=== PATIENT | female | born 1980 | race Caucasian/White ===

== ENCOUNTER 2020-09-15 06:54 | Inpatient (IN) ==
--- NOTE | 2020-09-11 11:04 | PAT Medication Instructions ---
Medication Instructions Date of Service September 11, 2020 Home Medications [Glucosamine Chondroitin] 1 cap PO PM multivitamin 1 tab PO PM STOP taking 2 weeks before surgery If surgery is within 2 weeks, stop taking as soon as possible. [Glucosamine Chondroitin] 1 cap PO PM Take evening before surgery multivitamin 1 tab PO PM NOTHING TO EAT OR DRINK AFTER MIDNIGHT. Other Notes If you have any questions please call us at [phone] or [phone] or [phone] or [phone]
--- NOTE | 2020-09-12 11:56 | Anesthesiology Consultation ---
Date of Service September 12, 2020 Assessment & Plan (1) Encounter for pre-operative examination: Chart Review Chart Review: Acceptable Risk for Surgery (pending preop Covid testing ) and Patient seen in Pre Admission Testing - Check test AM DOS Per [facility] appt on 09/12/20, patient denies any recent travel or large group activities. No known Covid positive contacts or Covid related symptoms. Pt denies any known Covid infection in the past 90 days. Preop Covid test done at [facility] appt on 09/12/20= results pending Teaching & Discussion Pre-Anesthesia Teaching/Discussion Notes: Instructed NPO after midnight before surgery,except medications with 15 cc of water. Medication instructions provided according to the [facility] guidelines. History Surgery Operation Date: 09/15/20 11:20 Proposed Procedures p Total Abdominal Hysterectomy - Zack Salcido MD Height/Weight Height: 5 ft 10 in Weight: 103.1 kg Allergies Allergy/AdvReac Type Severity Reaction Status Date / Time No Known Allergies Allergy Verified 09/11/20 09:05 Medications Home Medications Medication Instructions Recorded Confirmed Last Taken glucos sul [id number] 1 cap PO PM 09/11/20 09/11/20 Unknown [Glucosamine Chondroitin] multivitamin 1 tab PO PM 09/11/20 09/11/20 Unknown Past Medical History Medical History (Updated 09/12/20 @ 14:40 by Leidy Moreland PA-C) Anxiety mild > no meds - stable Cardiac murmur Echo 2019 showed trace to mild TR. No significant murmur noted at 09/12/20 [facility] appt Degenerative disc disease lumbar Hypertension not chronic just when nervous Mini stroke 4 yrs ago > no residual effects > caused by stress overload > doesn't follow neuro Palpitations 11/2018 came to OR ED, no further issue, felt was stress/anxiety related. Echo WNL. Exercise / Class Metabolic Activity II 4-5 Yardwork/Stairs/Walk up hill (one flight of stairs- no chest pain or SOB ) Past Family History Family History Aunt Cerebral aneurysm Past Surgical History Surgical History [place] teeth extracted Past Anesthesia History No Hx of Anesthesia Complications (had minimal sedation with wisdom teeth ) and No Family Hx of Anesthesia Complications History of PONV No Hx of PONV and No Hx of Motion Sickness Social History Smoking Status: Former smoker Do You Dip or Chew Tobacco: No Smoking End Date: 2 yrs ago Hx Alcohol Use: No Alcohol Intake Frequency Comment: sober for 5.5 yrs Hx Substance Use: No substance use type: does not use Review of Systems Occ reflux- diet dependent- relieved by Tums Patient denies chest pain, shortness of breath, dyspnea on exertion, cough, wheezing, palpitations. No hx of seizures, NE, apnea/snoring. No hx of blood clots or blood transfusions Physical Exam Vital Signs VITALS BP 149/96 P 70 TEMP 98.4 SP02 99% RESP 16 Constitutional no acute distress ENMT Mouth: no TMJ clicking Thyromental Distance: > or= 3.5 Finger Breadths (3.5) Mallampati Class: II Denies loose or missing teeth Neck neck extension not limited Respiratory normal respiratory effort; no respiratory distress Auscultation: lungs clear to auscultation bilaterally; no wheezes Cardiovascular Rate/Rhythm: regular rate and regular rhythm Heart Sounds: no murmur Vessels: no carotid bruit Musculoskeletal Spine: no pain with cervical ROM Extremities: extremities normal to inspection Psychiatric Orientation: alert Testing Laboratory Results 09/12/20 11:41 09/12/20 11:41 PT 10.3 Seconds (9.0-12.0) 09/12/20 11:41 INR 1.0 (0.9-1.1) 09/12/20 11:41 APTT 25.4 Seconds (21.0-31.0) 09/12/20 11:41 Urine Test Negative (Negative) 09/12/20 11:41 Blood Type A Positive 09/12/20 11:41 Antibody Screen NEGATIVE 09/12/20 11:41 09/12/20 11:41 Urine Test Negative Electrocardiogram Date: 09/12/20 Findings: + NSR @ (60bpm) Normal EKG. Echocardiogram Date: 12/28/18 EF: 55-60% LV Function: normal RWMA: + none Other Findings: + diastolic dysfunction (Grade 1) Left atrium mildly dilated. Trace to mild TR. Other Testing Holter report 01/18/2019 = rhythm is sinus rhythm. Average heart rate 76 bpm. Minimum heart rate 37 bpm. Maximum heart rate 156 bpm. No significant pauses or AV block noted. Normal PA, QRS, and QT intervals of varying heart rates. No atrial arrhythmias noted. No ventricular arrhythmias noted. Normal Holter monitor without arrhythmia or symptoms. Normal heart rates.
[2020-09-12 12:15] LABS: Basophils # (auto) 0.02 K/uL (0-0.2); Basophils % (auto) 0.4 %; Eosinophils # (auto) 0.03 K/uL (0-0.5); Eosinophils % (auto) 0.5 %; Hematocrit (blood only) 43.7 % (37-47); Hemoglobin 14.8 g/dL (12.0-16.0); Immature Granulocytes # (auto) 0.01 K/uL (0.00-0.02); Immature Granulocytes % (auto) 0.2 %; Lymphocytes # (auto) 1.79 K/uL (1.2-3.4); Lymphocytes % (auto) 32.6 %; Mean Corpuscular Hemoglobin 29.7 pg (25-34); Mean Corpuscular Hgb Conc 33.9 g/dL (32-36); Mean Corpuscular Volume 87.8 fL (80-100); Mean Platelet Volume 9.9 fL (7.4-10.4); Monocytes % (auto) 3.6 %; Neutrophils # (auto) 3.44 K/uL (1.4-6.5); Neutrophils % (auto) 62.7 %; Platelet Count 299 K/uL (130-400); RDW Standard Deviation 42.2 fL (36.4-46.3); Red Blood Count 4.98 M/uL (4.2-5.4); White Blood Count 5.49 K/uL (4.8-10.8)
[2020-09-12 12:17] LABS: Pregnancy Test, Urine Negative (Negative)
[2020-09-12 12:26] LABS: Partial Thromboplastin Time 25.4 Seconds (21.0-31.0); Prothrombin Time 10.3 Seconds (9.0-12.0)
--- NOTE | 2020-09-12 13:05 | History and Physical Report ---
DATE OF ADMISSION: 09/15/2020 CHIEF COMPLAINT: Pelvic pain, dyspareunia, heavy vaginal bleeding. HISTORY OF PRESENT ILLNESS: The patient is a 40-year-old 1, para 0. Her general health is good. She was on control pills to help control pelvic pain and heavy bleeding, stopped those about 10 days prior to admission. Her periods are every 28-30 days, they last for over 7 days. She has 5 heavy days where she can soak a pad in under an hour and has difficulty leaving the house. She also has severe cramping with her periods, which actually now starts before she gets her period and last after they stop. All of these symptoms have been present for several years and been getting progressively worse. She also had problems with dyspareunia, has been present for 8 years. Basically pain on deep penetration during intercourse and then after and this has been getting progressively worse for the last 8 years. Presently, patient is being scheduled for an outpatient total abdominal hysterectomy with preservation of the ovaries. PAST MEDICAL HISTORY: No known drug allergies. PAST SURGICAL HISTORY: No previous surgery. MEDICAL HISTORY: No history of rheumatic fever, heart disease, heart murmur, diabetes, tuberculosis. SOCIAL HISTORY: She was a 1 pack a day smoker for 26 years, quit 2 years ago. Alcohol intake, she stopped drinking totally 5-1/2 years ago. She is employed as a [employer]. She works in [employer]. FAMILY HISTORY: Mom is 66, former smoker, has chronic obstructive pulmonary disease. Father at age 72 of pancreatic cancer. One brother age 42, has problems with being overweight, high blood pressure. REVIEW OF SYSTEMS: HEAD: No symptoms of frequent or severe headaches. EYES: No symptoms of blurred vision, double vision. EARS: No symptoms of frequent ear infections, difficulty hearing. PHYSICAL EXAMINATION: GENERAL: Well-developed, well-nourished 40-year-old white female, alert, oriented x3 and cooperative, no acute distress, appeared her stated age. EYES: Conjunctivae are pink. Sclerae white, no evidence of jaundice. EARS: Had normal light reflex bilaterally. NOSE: Had normal mucosa. Septum is midline. There were no polyps. THROAT: No erythema or evidence of infection. Teeth are in good state of repair. HEAD: Normocephalic, normal distribution of hair. NECK: Supple. Trachea midline. Thyroid is not enlarged. There is no adenopathy appreciated. Both carotids are of good intensity. CHEST: Clear to auscultation and percussion. No wheezes, rales or rhonchi appreciated. HEART: Had regular rhythm. S1, S2 are normal. BREASTS: Normal. ABDOMEN: Soft and nontender. PELVIC: Revealed a normal-appearing cervix. Uterus was top normal size. Bimanual examination revealed tenderness and uterosacral ligaments along with nodularity. MUSCULOSKELETAL: Revealed no calf tenderness. IMPRESSIONS OF THIS CASE: Pelvic pain secondary to endometriosis.
[2020-09-12 15:04] LABS: BUN Creatinine Ratio 16.5 (10-20); Calcium 9.5 mg/dl (8.5-10.1); Creatinine Clr Calc Pharmacy 138.9 ml/min; Est GFR (African American) 125.6; Est GFR (Non-African American) 108.4; Potassium 3.6 mmol/L (3.5-5.1)
--- NOTE | 2020-09-12 16:53 | Electrocardiogram Report ---
Test Reason : Blood Pressure : / mmHG Vent. Rate : 060 BPM Atrial Rate : 060 BPM P-R Int : 158 ms QRS Dur : 100 ms QT Int : 434 ms P-R-T Axes : 034 046 052 degrees QTc Int : 434 ms Normal sinus rhythm Normal ECG When compared with ECG of 17-DEC-2018 11:47, No significant change was found Confirmed by Alfredo Kerr ([id number]) on 09/12/2020 4:53:41 PM Referred By: Zack Salcido Confirmed By:Liborio Kerr
[~2020-09-15 06:54] MED LIST: LACTATED RINGER'S 1,000 ML IV SCH; cefOXitin 2,000 MG in DEXTROSE 5% 50 ML IV SCH
[2020-09-15] MEDS ORDERED: GLYCOPYRROLATE 0.2 MG/ML VIAL ONE (08:47)
[2020-09-15] MEDS ORDERED: ePHEDrine sulfate 50 MG/ML AMP ONE (08:47)
[2020-09-15] MEDS ORDERED: SUCCINYLCHOLINE CHLORIDE 20 MG/ML 10 ML VIAL IV ONE (08:47)
[2020-09-15] MEDS ORDERED: PHENYLEPHRINE HCL 10 MG/ML VIAL ONE (08:47)
[2020-09-15] MEDS ORDERED: fentaNYL citrate 100 MCG/2 ML VIAL ONE (08:47)
[2020-09-15] MEDS ORDERED: ONDANSETRON INJ 2 MG/ML 2 ML VIAL ONE (08:47)
[2020-09-15] MEDS ORDERED: MIDAZOLAM HCL 1 MG/ML 2ML VIAL ONE (08:47)
[2020-09-15] MEDS ORDERED: PROPOFOL IV EMULSION 10 MG/ML 20 ML VIAL IV ONE (08:47)
[2020-09-15] MEDS ORDERED: LIDOCAINE 2% 2 ML VIAL/AMP(20MG/ML) INFIL ONE (08:47)
[2020-09-15] MEDS ORDERED: DEXAMETHASONE SOD INJ 4 MG/ML VIAL ONE (08:47)
[2020-09-15] MEDS ORDERED: NEOSTIGMINE METHYLSULFATE 5 MG/5 ML SYR ONE (08:47)
--- NOTE | 2020-09-15 08:55 | History & Physical Bridge Note ---
Date of Service September 15, 2020 History & Physical Bridge Note I have examined the patient, reviewed the History & Physical and in the interval since the performance of the History & Physical I have noted the following changes of clinical significance: no changes noted
[2020-09-15] MEDS ORDERED: PROMETHAZINE HCL 12.5 MG in SODIUM CHLORIDE 0.9% 50 ML IV PRN (09:06)
[2020-09-15] MEDS ORDERED: LACTATED RINGER'S 500 ML IV PRN (09:06)
[2020-09-15] MEDS ORDERED: NALOXONE HCL 0.08 MG in SYRINGE 1.8 ML IV PRN (09:06)
[2020-09-15] MEDS ORDERED: ePHEDrine sulfate 50 MG/ML AMP IV PRN (09:06)
[2020-09-15] MEDS ORDERED: diphenhydrAMINE 50 MG/ML VIAL IV PRN (09:06)
[2020-09-15] MEDS ORDERED: MoRPHine SULFATE PF 1 MG/ML 10 ML AMP/VIAL INT SPINAL ONE (09:06)
[2020-09-15] MEDS ORDERED: ONDANSETRON INJ 2 MG/ML 2 ML VIAL IV PRN ×2 (09:06→13:03)
[2020-09-15] MEDS ORDERED: NALOXONE HCL 1 MG in SODIUM CHLORIDE 0.9% 1000ML 1,000 ML IV PRN (09:06)
[2020-09-15] MEDS ORDERED: KETOROLAC 30 MG/ML VIAL IV PRN ×2 (09:06→13:03)
[2020-09-15] MEDS ORDERED: NALOXONE HCL 0.4 MG/1 ML VIAL/CARP IV PRN (09:06)
[2020-09-15] MEDS ORDERED: NO NARCOTICS OR SEDATIVES SCH (09:15)
[2020-09-15] MEDS ORDERED: DC INTRASPINAL MORPHINE SCH (09:15)
[2020-09-15] MEDS ORDERED: SODIUM CHLORIDE 0.9% 1000ML 1,000 ML IV SCH (09:15)
[2020-09-15] MEDS ORDERED: MoRPHine SULFATE PF 1 MG/ML 10 ML AMP/VIAL ONE (09:23)
[2020-09-15] MEDS ORDERED: HEPARIN (PORCINE) 1000 UNIT/ML 10 ML (CATH LAB USE ONLY) ONE (10:15)
[2020-09-15] MEDS ORDERED: KETOROLAC 30 MG/ML VIAL ONE ×2 (12:04→12:05)
[2020-09-15] MEDS ORDERED: ROCURONIUM BROMIDE 10 MG/ML 5 ML VIAL IV ONE (12:05)
--- NOTE | 2020-09-15 13:02 | Post Operative Brief Note ---
Immediate Post Op Note v1 Date of Surgery September 15, 2020 Pre & Post Diagnosis Operation Date: 09/15/20 08:50 Pre-Op Diagnosis: Dysmenorrhea, Dyspareunia, History of Abnormal Paps Post-Op Diagnosis: Dysmenorrhea, Dyspareunia, History of Abnormal Paps I identified the patient and participated in the time-out.: Yes Procedure Operation Date: 09/15/20 08:50 Actual Procedures p Total Abdominal Hysterectomy - Zack Salcido MD Surgeon Zack Salcido MD Protein Purification Scientist Dr Joiner Estimated Blood Loss 200 Findings Consistent with Post-Op Diagnosis Specimens uterus and cervix Drains Sneads Drain Anesthesia Type General Complications none Disposition Accompanied Patient To Recovery: No Disposition: Recovery Room
[2020-09-15] MEDS ORDERED: PROMETHAZINE HCL 25 MG in SODIUM CHLORIDE 0.9% 50 ML IV PRN (13:03)
[2020-09-15] MEDS ORDERED: MEPERIDINE HCL 50 MG/ML CARP IV PRN (13:03)
[2020-09-15] MEDS ORDERED: SENNA 8.6 MG TAB PO PRN (13:03)
[2020-09-15] MEDS ORDERED: bisacodyL 10 MG SUPP PR PRN (13:03)
[2020-09-15] MEDS ORDERED: MAGNESIUM HYDROXIDE SUSP 30 ML UDC PO PRN (13:03)
[2020-09-15] MEDS: MEPERIDINE HCL 25 MG/ML CARP/VIAL IV PRN ×2 (13:31→16:45)
--- NOTE | 2020-09-15 13:51 | Operative Report (OR) ---
DATE OF OPERATION: 09/15/2020 PROCEDURE: Total abdominal hysterectomy. INDICATIONS FOR SURGERY: Dyspareunia, pelvic pain. PREOPERATIVE DIAGNOSES: Dyspareunia, pelvic pain. POSTOPERATIVE DIAGNOSES: Dyspareunia, pelvic pain. Pathology pending. SURGEON: Gissel Salcido MD. CONFLICTS ANALYST: Dr. Frausto. ESTIMATED BLOOD LOSS: 200 mL. ANESTHESIA: General with spinal narcotics. OPERATIVE FINDINGS AND PROCEDURE: The patient was brought to the OR table, correctly identified by armband and conversation. General anesthesia was administered. Perineum had been prepped and draped with iodine solution and a Gregory catheter inserted aseptically in the bladder. Compression stockings were applied. The lower abdomen was painted with an alcohol-based sterilizing solution, then it was draped in usual sterile fashion. A Pfannenstiel incision was made and carried down to the anterior fascia by sharp dissection. Hemostasis was secured by electrocauterization. Fascia was incised transversely, exposing the recti muscles, which were in the midline. Peritoneum was carefully raised and entered. An O'Erasto-O'Sherman self-retraining retractor was inserted into the incision. Several moist laparotomy pads were used to retract the intestines and provide adequate exposure of the pelvic cavity. Following this, both ureters were identified by palpation. The uterus was grasped with double tooth tenaculum. The round ligaments on each side were doubly suture ligated and cut. An incision was made above the vesicouterine fold. Bladder was punched and pushed out of the operative field. Then, the ovarian ligaments were skeletonized on each side, they were clamped close to the uterine fundus and then distally doubly ligated with a silk tie. The uterine vessels were skeletonized, doubly ligated with a curved Usha, then cut with a stump and then doubly ligated with a chromic gut suture. The bladder was advanced out of the operative field. Cardinal ligaments were cut by sliding off the cervix with a curved Usha, cutting with a stump and then ligating with a chromic gut suture. This was done in 3 steps because of the length of the cardinal ligament. The cervix was then shelled out, thus removing the surgical specimen consisting of uterus and cervix. Following this, the angles of the vaginal cuff were suture ligated to the cardinal ligaments on each side. Then, the anterior and posterior vaginal cuff was approximated front to back with a [id number] suture, the base of which was anchored in the cardinal ligaments. The mid portion of the vaginal cuff was whipstitched open with a chromic gut suture. We checked carefully on hemostasis in the vaginal cuff, it was excellent. Then, the uterosacral ligaments were approximated with a ykbvik-ru-woblt suture of heavy Vicryl, which approximated the uterosacral ligaments, obliterated the cul-de-sac and helped to suspend the cuff. Following this, the peritoneal edges were approximated and thus covering up the cardinal stumps and approximating the peritoneal edges. This was done from the right side down to the middle and from the left side down to the middle and tied to each other. A Grady drain with a safety pin was placed into the vaginal cuff and the distal end was in the cul-de-sac. The pelvis was washed of all blood clots and debris. Hemostasis was excellent. Then, the packs were removed. Instrument count was normal. The anterior abdomen was carefully closed. The peritoneum was closed with a mattress suture of chromic catgut. Recti muscles were approximated with interrupted hvraok-tc-[id number] suture of chromic catgut. The fascia was closed with continuous interlocking suture of Vicryl on each side, tied in the midline. Subcutaneous was approximated with a running plain and skin edges were approximated with staple clips. I attest to the content of the Intraoperative Record and any orders documented therein. Any exception s are noted below.
--- NOTE | 2020-09-15 14:34 | Anesthesiology Progress Note ---
Date of Service September 15, 2020 Anesthesia Post Procedure Vital Signs Vital Signs: Temp Pulse Pulse Resp BP Pulse Ox 09/15/20 13:50 66 16 121/74 97 09/15/20 13:40 36.5 C 63 16 134/75 98 09/15/20 13:30 73 16 128/77 95 09/15/20 13:20 69 13 129/77 99 09/15/20 13:10 71 17 136/82 99 09/15/20 13:02 36.1 C L 87 12 115/80 99 09/15/20 07:25 37.4 C 78 18 168/93 H 99 Pain Intensity Abdomen: Pain Intensity: 3 Transfer of Care Handoff Completed per policy Notes Mental Status: alert / awake / arousable Patient Amnestic to Procedure: Yes Nausea / Vomiting: adequately controlled Pain: adequately controlled Airway Patency, RR, SpO2: stable & adequate BP & HR: stable & adequate Hydration State: stable & adequate Anesthetic Complications: no major complications apparent
[2020-09-15] MEDS: D5W AND LACTATED RINGERS 1,000 ML IV SCH ×2 (15:41→23:47)
[2020-09-16 06:38] LABS: Hematocrit (blood only) 35.2 % (37-47); Hemoglobin 11.6 g/dL (12.0-16.0)
[2020-09-16] MEDS: oxyCODONE/ACETAMINOPHEN 5mg/325mg TAB PO PRN ×3 (06:54→17:41)
--- NOTE | 2020-09-16 10:54 | Obstetrical Progress Note ---
Date of Service September 16, 2020 Assessment & Plan Admission and Anticipated Discharge Date Admission Date: September 15, 2020 Physical Exam Physical Exam: abdomen soft and non tender bandage removed incision is clean and dry no calf tenderness ambulating well vaginal bleeding scant hgb 11.6 Results & Data ([facility]) Vital Signs (Past 12 Hours) Vital Signs Temp Pulse Resp BP Pulse Ox 09/16/20 07:43 36.7 C 48 L 18 109/69 96 09/16/20 05:00 36.7 C 62 16 105/63 100 09/16/20 03:30 15 97 09/16/20 02:30 16 95 09/16/20 01:30 14 98 09/16/20 00:30 15 97 09/15/20 23:30 36.7 C 57 L 17 109/58 L 96
--- NOTE | 2020-09-16 12:19 | Anesthesiology Progress Note ---
Date of Service September 16, 2020 Anesthesia Post Procedure Vital Signs Vital Signs: Temp Pulse Pulse Resp BP BP Pulse Ox 09/16/20 07:43 36.7 C 48 L 18 109/69 96 09/16/20 05:00 36.7 C 62 16 105/63 100 09/16/20 03:30 15 97 09/16/20 02:30 16 95 09/16/20 01:30 14 98 09/16/20 00:30 15 97 09/15/20 23:30 36.7 C 57 L 17 109/58 L 96 09/15/20 22:30 16 98 09/15/20 21:30 16 98 09/15/20 20:30 16 97 09/15/20 19:31 36.8 C 51 L 18 111/64 97 09/15/20 19:30 18 97 09/15/20 18:25 18 100 09/15/20 17:30 16 98 09/15/20 16:30 36.7 C 64 16 116/70 116/70 99 09/15/20 15:30 36.3 C L 59 L 16 117/72 100 09/15/20 15:00 36.4 C L 64 18 116/74 98 09/15/20 14:25 36.7 C 64 64 16 119/76 119/76 100 09/15/20 13:50 66 16 121/74 97 09/15/20 13:40 36.5 C 63 16 134/75 98 09/15/20 13:30 73 16 128/77 95 09/15/20 13:20 69 13 129/77 99 09/15/20 13:10 71 17 136/82 99 09/15/20 13:02 36.1 C L 87 12 115/80 99 Pulse Ox 09/16/20 07:43 09/16/20 05:00 09/16/20 03:30 09/16/20 02:30 09/16/20 01:30 09/16/20 00:30 09/15/20 23:30 09/15/20 22:30 09/15/20 21:30 09/15/20 20:30 09/15/20 19:31 97 09/15/20 19:30 09/15/20 18:25 09/15/20 17:30 09/15/20 16:30 09/15/20 15:30 09/15/20 15:00 09/15/20 14:25 09/15/20 13:50 09/15/20 13:40 09/15/20 13:30 09/15/20 13:20 09/15/20 13:10 09/15/20 13:02 Notes Mental Status: alert / awake / arousable Patient Amnestic to Procedure: Yes Nausea / Vomiting: adequately controlled Pain: adequately controlled Airway Patency, RR, SpO2: stable & adequate BP & HR: stable & adequate Hydration State: stable & adequate Anesthetic Complications: no major complications apparent and Pt Satisfied with anesthetic care
[2020-09-16] MEDS: IBUPROFEN 600 MG TAB PO PRN ×2 (13:39→17:40)
[2020-09-17] MEDS: oxyCODONE/ACETAMINOPHEN 5mg/325mg TAB PO PRN ×3 (00:05→12:38)
[2020-09-17] MEDS: IBUPROFEN 600 MG TAB PO PRN ×3 (00:05→12:38)
[2020-09-17] MEDS ORDERED: ONDANSETRON 4 MG OD TAB PO PRN (00:38)
[2020-09-17 06:36] LABS: Hematocrit (blood only) 34.4 % (37-47); Hemoglobin 11.4 g/dL (12.0-16.0)
--- NOTE | 2020-09-17 14:21 | Obstetrical Progress Note ---
Date of Service September 17, 2020 Assessment & Plan Admission and Anticipated Discharge Date Admission Date: September 15, 2020 Physical Exam Physical Exam: abdomen soft and non tender incision is clean and dry no calf tenderness ambulating well passing gas vaginal bleeding scant hgb 11.4 marissa drain removed from vaginal cuff Results & Data ([facility]) Vital Signs (Past 12 Hours) Vital Signs Temp Pulse Resp BP Pulse Ox 09/17/20 08:00 36.9 C 59 L 18 125/77 95
--- NOTE | 2020-09-17 22:24 | Discharge Summary (DS) ---
DATE OF OPERATION: 09/17/2020 HISTORY AND HOSPITAL COURSE: She is a 1, para 0, 40-year-old white female admitted with history of pelvic pain, heavy irregular vaginal bleeding, which she has had for years. Previously, she had had a Mirena IUD to control the heavy bleeding. She requested permanent sterilization and also requested hysterectomy for permanent solution. She also had pelvic pain, typically pain on deep penetration that had been present for years, has been getting progressively worse along with her heavy irregular bleeding. She was admitted, she was taken to the OR. She was given prophylactic antibiotics. Under general anesthesia with spinal narcotics, she underwent a total abdominal hysterectomy, suspension of the vaginal cuff, preservation of both ovaries. Postoperatively, she did well. Her preoperative hemoglobin was about 13, postoperatively it fell to 11.6. A Grady drain was placed in the vaginal cuff along with a small central area in the cuff, which was sewn open. It took about 24 hours for her to pass gas. Her bowel sounds had returned immediately. She remained afebrile throughout her postoperative course. She did receive Mefoxin 2 grams prior to the surgery. On the second postoperative day, she was ambulating well, eating well, she was afebrile. Her hemoglobin was stable at about 11.4. The Grady drain with the safety pin was removed from the cuff and she was ready for discharge. Pain was well controlled on a combination of Percocet and Motrin. Prescriptions were called into the pharmacy. She was given the usual instructions to call their office if she had a temperature over 100, call if she had any heavy bleeding and to return in a week for removal of [place]. I attest to the content of the Intraoperative Record and any orders documented therein. Any exception s are noted below.
== END 2020-09-17 14:42 | disposition home or self-care (01) ==
LOC: ASU 06:54 → 4S2 13:03